=== PATIENT | male | born 1990 | race Two or more races ===

== ENCOUNTER 2020-05-07 05:14 | Emergency (ER) | payer MEDICAID ==
[~2020-05-07] VITALS: Ht 167.6 cm; Wt 93.0 kg
--- NOTE | 2020-05-07 05:15 | NUR ---
BIBS FOR C/O SUDDEN L FLANK PAIN. PT DENIED ANY HEMATURIE , DYSURIA OR N/V. PT AMBULATORY TO THE BATHROOM, ABLE TO PROVIDE URINE SAMPLE. TO ER BED 7, WAS PLACED ON A MONITOR, VSS. WILL CONT TO MONITOR
[2020-05-07] MEDS ORDERED: MORPHINE SULFATE INJ 4 MG/ML DISP.SYRIN ONE (05:31)
[2020-05-07] MEDS ORDERED: ONDANSETRON HCL/PF 4 MG/2 ML VIAL ONE (05:31)
[2020-05-07] MEDS: IV NS 0.9% 1,000 ML BAG IV ONE (05:35)
[2020-05-07] MEDS: ONDANSETRON HCL/PF 4 MG/2 ML VIAL IVP ONE (05:35)
[2020-05-07 05:36] LABS: BASOPHILS % (AUTO) 0.3 % (0.0-2.0); EOSINOPHILS % (AUTO) 1.3 % (0.0-6.0); HEMATOCRIT 46 % (39-51); HEMOGLOBIN 15.9 g/dL (13.5-17.5); LYMPHOCYTES # (AUTO) 6.4 /CMM (0.8-4.8); LYMPHOCYTES % (AUTO) 47.4 % (20.0-44.0); MEAN CORPUSCULAR HGB CONC 35 g/dl (31.0-36.0); MEAN CORPUSCULAR VOLUME 87 fL (80-96); MONOCYTES # (AUTO) 1.3 /CMM (0.1-1.30); MONOCYTES % (AUTO) 9.8 % (2.0-12.0); NEUTROPHILS # (AUTO) 5.6 /CMM (1.8-8.9); NEUTROPHILS % (AUTO) 41.2 % (43.0-81.0); PLATELET COUNT (AUTO) 176 /CMM (150-450); RED BLOOD CELL COUNT(AUTO) 5.25 MIL/uL (4.5-6.0); WHITE BLOOD COUNT (AUTO) 13.6 K/uL (4.3-11.0)
[2020-05-07] MEDS: MORPHINE SULFATE INJ 2 MG/ML DISP.SYRIN IV ONE (05:37)
[2020-05-07 05:45] LABS: CALCIUM, SERUM 9.3 mg/dL (8.5-10.1); CREATININE 1.2 mg/dL (0.6-1.3); POTASSIUM 3.3 mmol/L (3.5-5.1)
[2020-05-07 05:46] LABS: BILIRUBIN,URINE NEGATIVE (NEGATIVE); COLOR,URINE YELLOW (YELLOW); LEUKOCYTE ESTERASE ,URINE NEGATIVE (NEGATIVE); NITRITE, URINE NEGATIVE (NEGATIVE); PROTEIN,URINE NEGATIVE (NEGATIVE); UGLUCOSE NEGATIVE (NEGATIVE); UROBILINOGEN,URINE 0.2 EU/dL (0.2)
--- NOTE | 2020-05-07 05:50 | NUR ---
BACK FROM CT
[2020-05-07 05:51] LABS: ALBUMIN 4.4 g/dL (3.4-5.0); BILIRUBIN,DIRECT 0.1 mg/dL (0.0-0.2); BILIRUBIN,TOTAL 0.5 mg/dL (0.2-1.0); TOTAL PROTEIN, SERUM 7.9 g/dL (6.4-8.2)
[2020-05-07] MEDS ORDERED: KETOROLAC TROMETHAMINE INJ 30 MG/ML VIAL ONE (05:51)
[2020-05-07] MEDS: KETOROLAC TROMETHAMINE INJ 30 MG/ML VIAL IV ONE (05:54)
--- NOTE | 2020-05-07 06:02 | NUR ---
HARSH (MOTHER) CONTACT INFORMATION: [phone]
[2020-05-07] MEDS ORDERED: ONDA4TAB5 PO (06:19)
[2020-05-07] MEDS ORDERED: TRAM50TA2 PO (06:19)
--- NOTE | 2020-05-07 06:30 | NUR ---
pt is medically stable for d/c. IV removed. Catheter intact and site benign. Pressure and 4x4 applied to site. No bleeding noted.Patient discharged to home in stable condition. Rx and Written and verbal after care instructions given. Patient verbalizes understanding of instruction.
[2020-05-07 06:31] VITALS: BP 139/88
--- NOTE | 2020-05-07 06:32 | NUR ---
a friend picked up the pt
== END 2020-05-07 06:32 | disposition home or self-care (01) ==
LOC: ER 05:16
DX: N13.2 Hydronephrosis with renal and ureteral calculous obstruction (principal)
CPT/HCPCS: 36415; 74176; 80048; 80076; 81003; 83690; 85025; 96361; 96374; 96375; 99284; J1885; J2270; J2405; J7030